=== PATIENT | female | born 1990 ===

== ENCOUNTER 2018-01-02 20:40 | Emergency (ER) | payer OTHER ==
[2018-01-02 20:40] VITALS: BMI 21.5
[2018-01-02 20:50] VITALS: BP 123/77; PULSE 84; RESP 16; TEMP 97.7; O2SAT 98
[2018-01-02] MEDS ORDERED: Oxycodone/Acetaminophen 5/325 mg Tab PO STA (21:03)
[2018-01-02] MEDS ORDERED: Oxycodone/Acetaminophen 5/325 mg Tab ONE (21:21)
[2018-01-02] MEDS ORDERED: Tetanus/Diphtheria Toxoids 0.5 ml Syringe IM ONE ×2 (21:47→21:52)
--- NOTE | 2018-01-02 21:59 | C.PDOC ---
History Of Present Illness 27 year old female patient presents to the ER with c/o car door slammed on her right hand. Patient states her 3rd and 4th fingers are in pain. Patient denies weakness and numbness. Chief Complaint (Nursing): Upper Extremity Problem/Injury History Per: Patient History/Exam Limitations: no limitations Onset/Duration Of Symptoms: Hrs Current Symptoms Are (Timing): Still Present Quality: "Pain" Past Medical History Reviewed: Historical Data, Nursing Documentation, Vital Signs Vital Signs: Last Vital Signs Temp 97.7 F 01/02/18 20:47 Pulse 84 01/02/18 20:47 Resp 16 01/02/18 20:47 BP 123/77 01/02/18 20:47 Pulse Ox 98 01/02/18 22:22 - Medical History PMH: Asthma - [facility] Procedures DELIVERY OF PRODUCTS OF CONCEPTION, EXTERNAL APPROACH (06/18/16) MONITORING NOS (10/03/13) INJECT/INFUSE NEC (02/09/14) MANUAL ASSIST DELIV NEC (10/15/13) MONITORING OF POC, CARDIAC RATE, TOP LIFT SCOURER APPROACH (06/18/16) NEBULIZER THERAPY (02/09/14) REPAIR OB LACERATION NEC (10/15/13) REPAIR PERINEUM SKIN, EXTERNAL APPROACH (06/18/16) Family History: States: CAD - Social History Hx Alcohol Use: No Hx Substance Use: No - Immunization History Hx Tetanus Toxoid Vaccination: No Hx Influenza Vaccination: No Hx Pneumococcal Vaccination: No Review Of Systems Except As Marked, All Systems Reviewed And Found Negative. Musculoskeletal: Positive for: Hand Pain (3rd and 4th finger ) Neurological: Negative for: Weakness, Numbness Physical Exam - Physical Exam Appears: Well, Non-toxic, No Acute Distress Skin: Normal Color, Warm, Dry Head: Atraumatic, Normacephalic Extremity: Other (right 3rd finger with swelling of the distal phalanx, ecchymosis, tenderness. Small laceration on the distal pahalanx of the Right 3rd finger, about 4 mm. 4th finger with mild tenderness of the distal phalanx, no swelling. Finger nails are not possible to examine scondary of LCN gel manicure patient has on her. ) Neurological/Psych: Oriented x3, Normal Speech, Normal Motor, Normal Sensation, Normal Reflexes Gait: Steady ED Course And Treatment O2 Sat by Pulse Oximetry: 98 (RA) Pulse Ox Interpretation: Normal - Other Rad Left hand X-Ray: Read By Radiologist Interpretation: no dislocation. no fracture right hand X-Ray: Read By Radiologist Interpretation: no dislocation. no fracture Progress Note: Impression: hand injury by door. Plans: -- keflex. -- oxycodone. -- tetanus booster. -- XR right and left hand Disposition - Disposition Referrals: Andrzej Obrien MD [Staff Provider] - Disposition: HOME/ ROUTINE Disposition Time: 22:11 Condition: STABLE Additional Instructions: Follow up with hand specialist. Return to ED immediately if feel worse. Return to ED to examine your nail after your manicure specialist removes jell from your nail. Prescriptions: Ibuprofen [Motrin Tab] 600 mg PO Q8 #30 tab Instructions: Common Finger Injuries (DC) Forms: [facility] (Setswana), Work Excuse - Clinical Impression Clinical Impression: Finger contusion - PA / SOLID STATE TESTER / Resident Statement / has reviewed & agrees with the documentation as recorded. - Scribe Statement The provider has reviewed the documentation as recorded by the Andres Vo Do All medical record entries made by the Scribe were at my direction and personally dictated by me. I have reviewed the chart and agree that the record accurately reflects my personal performance of the history, physical exam, medical decision making, and the department course for this patient. I have also personally directed, reviewed, and agree with the discharge instructions and disposition.
[2018-01-02] MEDS ORDERED: Lidocaine 2% MPF (5 ml) Inj ONE (22:21)
--- NOTE | 2018-01-03 08:28 | RAD ---
PROCEDURE: Right Hand Radiographs. HISTORY: hit hand with the car door COMPARISON: None. FINDINGS: BONES: Normal. No fracture. JOINTS: Normal. No osteoarthritic changes. SOFT TISSUES: Normal. OTHER FINDINGS: None. IMPRESSION: Normal right hand radiographs.
== END 2018-01-02 22:24 | disposition home or self-care (01) ==
LOC: C.ER 20:40
DX: S60.031A Contusion of right middle finger without damage to nail, initial encounter (principal); S60.041A Contusion of right ring finger without damage to nail, initial encounter; W23.0XXA Caught, crushed, jammed, or pinched between moving objects, initial encounter; Z23 Encounter for immunization

== ENCOUNTER 2018-01-03 12:26 | Emergency (ER) | payer OTHER ==
[2018-01-03 12:27] VITALS: BMI 21.5
[2018-01-03 12:40] VITALS: BP 116/68; PULSE 75; RESP 16; TEMP 98.2; O2SAT 98
--- NOTE | 2018-01-03 13:02 | C.PDOC ---
History Of Present Illness 27 y/o female presents to the ED for evaluation of right 3rd finger injury, sustained yesterday when the finger was crushed in a car door. Patient was seen here yesterday, and x-ray was done showing no fracture. Patient had gel nail applied at the time, and therefore nail could not be assessed. States she had the gel removed at salon this morning, noticed discoloration to the nail, and returns for further evaluation. Patient denies any increased warmth, redness, or changes in sensation. She also denies fevers, chills. Time Seen by Provider: 01/03/18 12:41 Chief Complaint (Nursing): Upper Extremity Problem/Injury History Per: Patient History/Exam Limitations: no limitations Onset/Duration Of Symptoms: Days Current Symptoms Are (Timing): Still Present Past Medical History Reviewed: Historical Data, Nursing Documentation, Vital Signs Vital Signs: Last Vital Signs Temp 98.2 F 01/03/18 12:39 Pulse 75 01/03/18 12:39 Resp 16 01/03/18 12:39 BP 116/68 01/03/18 12:39 Pulse Ox 98 01/03/18 13:25 - Medical History PMH: Asthma Denies: Chronic Kidney Disease - [facility] Procedures DELIVERY OF PRODUCTS OF CONCEPTION, EXTERNAL APPROACH (06/18/16) MONITORING NOS (10/03/13) INJECT/INFUSE NEC (02/09/14) MANUAL ASSIST DELIV NEC (10/15/13) MONITORING OF POC, CARDIAC RATE, NET SOFTWARE ENGINEER APPROACH (06/18/16) NEBULIZER THERAPY (02/09/14) REPAIR OB LACERATION NEC (10/15/13) REPAIR PERINEUM SKIN, EXTERNAL APPROACH (06/18/16) Family History: States: CAD - Social History Hx Alcohol Use: No Hx Substance Use: No - Immunization History Hx Tetanus Toxoid Vaccination: Yes Hx Influenza Vaccination: No Hx Pneumococcal Vaccination: No Review Of Systems Except As Marked, All Systems Reviewed And Found Negative. Constitutional: Negative for: Fever, Chills Musculoskeletal: Positive for: Hand Pain, Other (discoloration to nail of left 3rd digit) Neurological: Negative for: Weakness, Numbness, Incoordination Physical Exam - Physical Exam Appears: Non-toxic, No Acute Distress Skin: Normal Color, Warm, Dry Head: Atraumatic, Normacephalic Eye(s): bilateral: Normal Inspection Neck: Normal ROM Chest: Symmetrical Extremity: Normal ROM, Capillary Refill (less than 2 sec), No Swelling, Other ( Subungual hemorrhage, 70% to nail of right 3rd digit) Pulses: Left Radial: Normal, Right Radial: Normal Neurological/Psych: Oriented x3, Normal Speech ED Course And Treatment O2 Sat by Pulse Oximetry: 98 (RA) Pulse Ox Interpretation: Normal Progress Note: Patient given 800mg PO Motrin for pain control. Cautery performed by me, and nail was drained with blood drained from under the nail. Sterile dressing and finger splint applied to left 3rd digit. Counseled regarding wound care and diagnosis. Patient instructed to follow up with hand specialist without fail. Disposition Counseled Patient/Family Regarding: Diagnosis, Need For Followup - Disposition Referrals: Andrzej Obrien MD [Staff Provider] - Disposition: HOME/ ROUTINE Disposition Time: 13:01 Condition: STABLE Additional Instructions: Follow up with Hand specialsit within 2-3 days. Return to ED if feel worse. Instructions: Wound Care (DC), Crush Injury (DC) Forms: [facility] (Kinyarwanda) - Clinical Impression Clinical Impression: Subungual hematoma - PA / REHABILITATION CENTER MANAGER / Resident Statement MD/DO has reviewed & agrees with the documentation as recorded. - Scribe Statement The provider has reviewed the documentation as recorded by the Scribe (Enedelia Archer) All medical record entries made by the Scribe were at my direction and personally dictated by me. I have reviewed the chart and agree that the record accurately reflects my personal performance of the history, physical exam, medical decision making, and the department course for this patient. I have also personally directed, reviewed, and agree with the discharge instructions and disposition.
== END 2018-01-03 13:12 | disposition home or self-care (01) ==
LOC: C.ER 12:26
DX: S60.031A Contusion of right middle finger without damage to nail, initial encounter (principal); W23.0XXA Caught, crushed, jammed, or pinched between moving objects, initial encounter